=== PATIENT | female | born 1960 | race Caucasian/White ===

== ENCOUNTER → 2020-10-27 | Outpatient (CLI) | payer OTHER ==
--- NOTE | 2020-10-27 14:53 | KCIC ---
STUDY: MRI of the right knee without contrast INDICATION: Right knee pain. Injury on 10/04/2021. COMPARISON: None. TECHNIQUE: Multiplanar MR imaging of the right knee performed without the use of intravenous or intra -articular contrast. FINDINGS: Menisci: Horizontal cleavage tear of the anterior body and horn of the lateral meniscus communicating with a parameniscal cyst measuring approximately 4.5 x 6.5 x 8 mm. Possible partial undersurface tea r at the lateral meniscus posterior horn though this location is somewhat unusual, image 16 series 5. Intact medial meniscus. Cruciate ligaments: The PCL is intact. The ACL is somewhat thin but intact traversing fibers remain w ell visualized. Collateral ligaments: Intact. Tendons: Intact. Cartilage: Patellofemoral: Partial thickness but in part high-grade chondrosis along a portion of the medial pat ellar facet and extending to involve the median ridge. Partial thickness chondrosis at the trochlear groove. Lateral compartment: Chondral thinning at the periphery of the weightbearing aspect in the region of the meniscal tear. Medial compartment: Partial thickness chondrosis of the medial femoral condyle at the posterior weigh tbearing aspect. Bones: Very minimal subchondral marrow edema at the periphery of the lateral tibial plateau. Trace pa tellar subchondral edema. No acute fracture. Small lateral joint line osteophytes. Miscellaneous: Small knee joint effusion, small Tran's cyst and a small ganglion along the popliteus myotendinous junction. Localized fatty infiltration at the medial aspect of the medial gastrocnemius could relate to remote injury. Mild edema anterior to the fibular collateral ligament is likely reac tive to the meniscal tear/parameniscal cyst. IMPRESSION: 1. Horizontal cleavage tear of the lateral meniscus anterior body and horn communicating with a para meniscal cyst measuring 4.5 x 6.5 x 8 mm. Possible additional partial-thickness undersurface tear at the lateral meniscus posterior horn (image 16 series 5). The medial meniscus is intact as are the cru ciate and collateral ligaments. 2. 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 3. Small knee joint effusion and a few small ganglion cysts. Electronically signed by: LOBO MALDONADO MD (10/27/2020 2:51 PM) [id number]
== END ==
LOC: KCIC MRI 11:11
PROVIDERS: ATTEND Family Medicine
DX: S83.281A Other tear of lateral meniscus, current injury, right knee, initial encounter (principal); M25.461 Effusion, right knee; M71.21 Synovial cyst of popliteal space [Baker], right knee; M67.461 Ganglion, right knee; X58.XXXA Exposure to other specified factors, initial encounter; Y93.89 Activity, other specified; Y92.89 Other specified places as the place of occurrence of the external cause; Y99.8 Other external cause status
CPT/HCPCS: 73721